=== PATIENT | female | born 2005 | race Caucasian/White ===

== ENCOUNTER 2023-12-01 01:27 | Emergency (ER) | payer MEDICAID ==
[~2023-12-01] VITALS: Ht 167.6 cm; Wt 123.0 kg
[2023-12-01 01:38] VITALS: O2SAT 99
[2023-12-01] MEDS: ACETAMINOPHEN 325MG TABLET PO ONE (01:45)
[2023-12-01] MEDS ORDERED: ACETAMINOPHEN 325MG TABLET PO NR (02:30)
[2023-12-01] MEDS ORDERED: TRAM50TA3 MT (03:43)
[2023-12-01] MEDS ORDERED: IBUP-2029 MT (03:43)
[2023-12-01] MEDS ORDERED: TRAMADOL 50MG TABLET PO ONE (03:45)
[2023-12-01 04:12] VITALS: BP 137/89; PULSE 82; RESP 16; TEMP 98
== END 2023-12-01 04:23 | disposition home or self-care (01) ==
LOC: ER 01:51
DX: S42.391A Other fracture of shaft of right humerus, initial encounter for closed fracture (principal); S00.83XA Contusion of other part of head, initial encounter; V98.8XXA Other specified transport accidents, initial encounter; Y93.89 Activity, other specified; Y92.89 Other specified places as the place of occurrence of the external cause; Y99.8 Other external cause status
CPT/HCPCS: 73060; 73090; 99284